=== PATIENT | female | born 1990 | race Caucasian/White ===

== ENCOUNTER 2018-05-24 11:11 | Emergency (ER) | payer MEDICAID ==
[~2018-05-24] VITALS: Ht 157.5 cm; Wt 109.1 kg
[2018-05-24 11:16] VITALS: Ht 157.5 cm; Wt 109.1 kg
[2018-05-24] MEDS ORDERED: PROAIR HFA8.5 GM INH (13:22)
[2018-05-24] MEDS ORDERED: PREDNISONE20 MG PO (13:22)
[2018-05-24] MEDS ORDERED: ASMANEX0.24 GM INH (13:22)
[2018-05-24 13:43] VITALS: BP 136/94
== END 2018-05-24 13:44 | disposition home or self-care (01) ==
LOC: EDBD 11:11 → D.ER 11:11
DX: J45.901 Unspecified asthma with (acute) exacerbation (principal)

== ENCOUNTER 2018-05-30 16:53 | Emergency (ER) | payer SELFPAY ==
[~2018-05-30] VITALS: Ht 157.5 cm; Wt 109.1 kg
[~2018-05-30 16:53] MED LIST: ASMANEX0.24 GM INH; PREDNISONE20 MG PO; PROAIR HFA8.5 GM INH
[2018-05-30 17:06] VITALS: Ht 157.5 cm; Wt 109.1 kg
[2018-05-30] MEDS ORDERED: SYMBICORT 16010.2 GM INH (17:08)
[2018-05-30] MEDS ORDERED: FLOVENT HFA 11012 GM INH (18:35)
[2018-05-30] MEDS ORDERED: STERAPRED DS 1210 MG PO (18:38)
[2018-05-30 18:53] VITALS: BP 127/66
[2018-05-31] MEDS ORDERED: VENTOLIN HFA18 GM INH (12:03)
[2018-05-31] MEDS ORDERED: STERAPRED DS 1210 MG PO (12:03)
[2018-05-31] MEDS ORDERED: FLOVENT HFA 22012 GM INH (12:03)
== END 2018-05-30 18:56 | disposition home or self-care (01) ==
LOC: D.ER 16:53
DX: J45.901 Unspecified asthma with (acute) exacerbation (principal)

== ENCOUNTER 2018-05-31 11:35 | Emergency (ER) | payer SELFPAY ==
[~2018-05-31] VITALS: Ht 157.5 cm; Wt 109.1 kg
[~2018-05-31 11:35] MED LIST changes: +FLOVENT HFA 11012 GM INH; +STERAPRED DS 1210 MG PO; +SYMBICORT 16010.2 GM INH
[2018-05-31 11:44] VITALS: Ht 157.5 cm; Wt 109.1 kg
[2018-05-31] MEDS ORDERED: FLOVENT HFA 22012 GM INH (12:03)
[2018-05-31] MEDS ORDERED: STERAPRED DS 1210 MG PO (12:03)
[2018-05-31] MEDS ORDERED: VENTOLIN HFA18 GM INH (12:03)
[2018-05-31 14:28] VITALS: BP 138/63
== END 2018-05-31 14:28 | disposition home or self-care (01) ==
LOC: D.ER 11:35
DX: J45.901 Unspecified asthma with (acute) exacerbation (principal)

== ENCOUNTER 2018-11-14 09:18 | Emergency (ER) | payer MEDICAID ==
[~2018-11-14] VITALS: Ht 157.5 cm; Wt 100.0 kg
[~2018-11-14 09:18] MED LIST changes: +FLOVENT HFA 22012 GM INH; +VENTOLIN HFA18 GM INH
[2018-11-14 09:20] VITALS: Ht 157.5 cm; Wt 100.0 kg
[2018-11-14] MEDS ORDERED: ZPAK PO (11:29)
[2018-11-14] MEDS ORDERED: MEDROL DOSE PACK4 MG PO (11:29)
[2018-11-14] MEDS ORDERED: TESSALON PERLE100 MG PO (11:29)
[2018-11-14 12:04] VITALS: BP 143/85
== END 2018-11-14 12:06 | disposition home or self-care (01) ==
LOC: D.ER 09:18
DX: J45.901 Unspecified asthma with (acute) exacerbation (principal)

== ENCOUNTER 2019-01-23 21:11 | Emergency (ER) | payer BC ==
[~2019-01-23] VITALS: Ht 157.5 cm; Wt 95.5 kg
[~2019-01-23 21:11] MED LIST changes: +MEDROL DOSE PACK4 MG PO; +TESSALON PERLE100 MG PO; +ZPAK PO
[2019-01-23 21:17] VITALS: Ht 157.5 cm; Wt 95.5 kg
[2019-01-23] MEDS ORDERED: ALBUTEROL2.5 MG/3 M (21:20)
[2019-01-23] MEDS ORDERED: ALBUTEROL SULF8.5 GM INH (22:16)
[2019-01-23] MEDS ORDERED: MEDROL DOSE PACK4 MG PO (22:16)
[2019-01-23 22:56] VITALS: BP 135/50
== END 2019-01-23 22:56 | disposition home or self-care (01) ==
LOC: D.ER 21:11
DX: J45.901 Unspecified asthma with (acute) exacerbation (principal); J06.9 Acute upper respiratory infection, unspecified; R09.89 Other specified symptoms and signs involving the circulatory and respiratory systems; F17.200 Nicotine dependence, unspecified, uncomplicated

== ENCOUNTER 2019-07-01 02:19 | Emergency (ER) | payer MEDICAID ==
[~2019-07-01] VITALS: Ht 157.5 cm; Wt 104.5 kg
[~2019-07-01 02:19] MED LIST changes: +ALBUTEROL SULF8.5 GM INH; +ALBUTEROL2.5 MG/3 M
[2019-07-01 02:24] VITALS: Ht 157.5 cm; Wt 104.5 kg
[2019-07-01 02:51] LABS: BASOPHILS 0.4 % (0-2); EOSINOPHILS 7.7 % (0-7); HEMATOCRIT 41.1 % (36.0-48.0); HEMOGLOBIN 13.7 g/dL (12-16); IMMATURE GRANULOCYTES 0.4 % (0-5); LYMPHOCYTES 32.2 % (15-50); MCH 28.6 pg (26.0-34.0); MCHC 33.3 g/dL (31.0-37.0); MCV 85.8 fL (80.0-100.0); MEAN PLATELET VOLUME 11.1 fL (7.4-10.4); MONOCYTES 4.5 % (2-11); NEUTROPHILS 54.8 % (40-80); PLATELET COUNT 281 10x3/uL (130-400); RBC 4.79 10x6/uL (4.00-5.40); RDW 13.5 % (11.5-14.5); WBC 11.6 10x3/uL (4.8-10.8)
[2019-07-01 02:56] LABS: APTT 28.8 SECONDS (22.8-39.4); INR 0.95 (0.85-1.17); PROTIME 12.2 SECONDS (11.6-15.0)
[2019-07-01 03:00] LABS: ALBUMIN 3.5 g/dL (3.4-5.0); ALKALINE PHOSPHATASE 104 U/L (46-116); ALT (SGPT) 24 U/L (10-68); CALC OSMOLALITY 279 mosm/kg (275-300); CALCIUM 8.9 mg/dL (8.5-10.1); CARBON DIOXIDE 26.6 mmol/L (21.0-32.0); CHLORIDE - SERUM 107 mmol/L (98-107); CREATININE - SERUM 0.6 mg/dL (0.6-1.3); GLUCOSE 107 mg/dL (74-106); POTASSIUM - SERUM 4.3 mmol/L (3.5-5.1); PROTEIN - SERUM 7.5 g/dL (6.4-8.2); SODIUM 141 mmol/L (136-145); UREA NITROGEN 11 mg/dL (7-18); eGFR NON AFRICAN AMERICAN > 90 mL/min (90-120)
[2019-07-01 03:12] LABS: CKMB 1.5 U/L (0.0-3.6); CREATINE KINASE 49 UL (21-215); PRO BNP 39 pg/mL (0-125); TROPONIN-I < 0.017 ng/mL (0.000-0.060)
[2019-07-01] MEDS ORDERED: PREDNISONE50 MG PO (04:10)
[2019-07-01] MEDS ORDERED: ALBUTEROL SULF8.5 GM INH (04:10)
[2019-07-01 04:45] VITALS: BP 157/70
== END 2019-07-01 04:40 | disposition home or self-care (01) ==
LOC: D.ER 02:19
PROVIDERS: Family Medicine
DX: J45.901 Unspecified asthma with (acute) exacerbation (principal); R06.02 Shortness of breath

== ENCOUNTER 2019-12-01 04:55 | Emergency (ER) | payer SELFPAY ==
[~2019-12-01] VITALS: Ht 157.5 cm; Wt 89.5 kg
[~2019-12-01 04:55] MED LIST changes: +PREDNISONE50 MG PO
[2019-12-01 04:58] VITALS: Ht 157.5 cm; Wt 89.5 kg
[2019-12-01 05:18] LABS: HCG URINE POSITIVE (NEGATIVE)
[2019-12-01 05:34] LABS: APPEARANCE CLOUDY (CLEAR); BILIRUBIN NEGATIVE (NEGATIVE); COLOR YELLOW (YELLOW); GLUCOSE NEGATIVE (NEGATIVE); KETONE MODERATE mg/dL (NEGATIVE); NITRITE POSITIVE (NEGATIVE); PROTEIN 1+ mg/dL (NEGATIVE); UROBILINOGEN NORMAL (NORMAL)
[2019-12-01 05:36] LABS: BACTERIA MANY /hpf (NEGATIVE); EPITHELIAL CELLS 0-5 /hpf (0-5)
[2019-12-01 06:05] LABS: BASOPHILS 0.2 % (0-2); EOSINOPHILS 0.2 % (0-7); HEMATOCRIT 39.1 % (36.0-48.0); HEMOGLOBIN 13.3 g/dL (12-16); IMMATURE GRANULOCYTES 0.3 % (0-5); LYMPHOCYTES 6.5 % (15-50); MCH 28.9 pg (26.0-34.0); MEAN PLATELET VOLUME 10.8 fL (7.4-10.4); MONOCYTES 8.4 % (2-11); NEUTROPHILS 84.4 % (40-80); RDW 13.3 % (11.5-14.5); WBC 11.7 10x3/uL (4.8-10.8)
[2019-12-01 06:09] LABS: CALC OSMOLALITY 264 mosm/kg (275-300); CALCIUM 8.8 mg/dL (8.5-10.1); CARBON DIOXIDE 21.4 mmol/L (21.0-32.0); CHLORIDE - SERUM 97 mmol/L (98-107); CREATININE - SERUM 0.7 mg/dL (0.6-1.3); POTASSIUM - SERUM 3.3 mmol/L (3.5-5.1); SODIUM 131 mmol/L (136-145); UREA NITROGEN 4 mg/dL (7-18); eGFR NON AFRICAN AMERICAN > 90 mL/min (90-120)
[2019-12-01 06:10] LABS: GLUCOSE 189 mg/dL (74-106)
[2019-12-01 06:22] LABS: ALKALINE PHOSPHATASE 120 U/L (46-116); ALT (SGPT) 61 U/L (10-68); PROTEIN - SERUM 7.3 g/dL (6.4-8.2)
[2019-12-01 06:28] LABS: PLATELET COUNT 211 10x3/uL (130-400)
[2019-12-01] MEDS ORDERED: OMNICEF300 MG PO (06:48)
[2019-12-01 06:51] LABS: UDS - AMPHET POSITIVE QUAL (NEGATIVE); UDS - BARB NEGATIVE QUAL (NEGATIVE); UDS - BENZO NEGATIVE QUAL (NEGATIVE); UDS - COCAINE NEGATIVE QUAL (NEGATIVE); UDS - OPIATE NEGATIVE QUAL (NEGATIVE); UDS - PCP NEGATIVE QUAL (NEGATIVE); UDS - THC NEGATIVE QUAL (NEGATIVE)
[2019-12-01 06:58] LABS: HCG - QUANTITATIVE (MATERNAL) 35313 mIU/mL
[2019-12-01 08:38] VITALS: BP 155/56
== END 2019-12-01 08:39 | disposition home or self-care (01) ==
LOC: D.ER 04:55
PROVIDERS: Family Medicine
DX: O23.40 Unspecified infection of urinary tract in pregnancy, unspecified trimester (principal); Z3A.00 Weeks of gestation of pregnancy not specified; J45.909 Unspecified asthma, uncomplicated; Z72.0 Tobacco use